=== PATIENT | male | born 1985 | race Caucasian/White ===

== ENCOUNTER 2019-01-21 13:14 | Emergency (ER) | payer MEDICAID, SELFPAY ==
--- NOTE | 2019-01-21 13:19 | NUR.NOTE ---
Nursing Note: pt states he has a history of acid reflux last night PT awoke with abdominal pain 01/18 which he states is typical for his acid reflux however PT also vomited last night which is atypical for him. pt currently has no abdominal pain. pt is here because the vomit concerns him as it had some red in it maybe blood but i did eat ketchup pt also states i need a damn work note because i missed work form this
[2019-01-21 13:22] VITALS: BP 152/89; PULSE 87; RESP 14; TEMP 36.7; O2SAT 96
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
== END 2019-01-21 14:15 | disposition home or self-care (01) ==
PROVIDERS: Emergency Provider Nurse Practitioner Family
DX: K21.9 Gastro-esophageal reflux disease without esophagitis (principal); R11.2 Nausea with vomiting, unspecified; I10 Essential (primary) hypertension
CPT/HCPCS: 99283

== ENCOUNTER 2020-05-03 13:59 | Outpatient (CLI) | payer MEDICAID, SELFPAY ==
--- NOTE | 2020-05-03 13:30 | DI.RAD_ITS ---
EXAM: XR ELBOW RT COMPLETE CLINICAL HISTORY: right elbow pain. TECHNIQUE: 2D digital imaging was performed. COMPARISON: CR RIGHT ELBOW COMPLETE from 10/06/2016 FINDINGS: The previously noted suture anchor is no longer seen. Postsurgical defect is again noted in the prox imal radius, near the tubercle. There is been interval increase in size of previously noted adjacent heterotopic bone formation. There is spurring at the olecranon. The joint spaces are well maintain ed. No joint effusion or joint space calcifications identified. IMPRESSION: Postsurgical changes. Heterotopic bone formation adjacent to the radial tubercle. DATA REPOSITORY: RADIATION DOSE DELIVERED:
== END 2020-05-03 14:19 ==
PROVIDERS: Visit Provider Physician Assistant
DX: M25.521 Pain in right elbow (principal); M89.8X3 Other specified disorders of bone, forearm
CPT/HCPCS: 73080

== ENCOUNTER 2021-02-02 12:07 | Emergency (ER) | payer MEDICAID, SELFPAY ==
[2021-02-02 12:13] VITALS: BP 131/109; PULSE 83; RESP 16; TEMP 36.8; O2SAT 98
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
== END 2021-02-02 12:45 | disposition home or self-care (01) ==
PROVIDERS: Emergency Provider Emergency Medicine
DX: H60.331 Swimmer's ear, right ear (principal); L73.9 Follicular disorder, unspecified
CPT/HCPCS: 99283

== ENCOUNTER 2021-11-05 10:11 | Emergency (ER) | payer MEDICAID, SELFPAY ==
[2021-11-05 10:19] VITALS: BP 135/65; PULSE 83; RESP 16; TEMP 36.8; O2SAT 98
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
[2021-11-05] MEDS: Lidocaine 2% Viscous 15 ML CUP PO (11:12)
[2021-11-05] MEDS: Mylanta Suspension 30 ML CUP PO (11:12)
[2021-11-05] MEDS: Ondansetron O.D.T. 4 MG TABEF SL (11:13)
[2021-11-05] MEDS: Pantoprazole 40 MG TABCR PO (11:13)
--- NOTE | 2021-11-05 11:33 | NUR.NOTE ---
Nursing Note: Referral given to Care Management to [facility] [place] [facility] for gastritis within 1 week. Erum Alejandro
[2021-11-05 11:42] VITALS: BP 128/81; PULSE 72; RESP 16; TEMP 36.8; O2SAT 96
--- NOTE | 2021-11-08 10:43 | CMACTNOTE_ITS ---
- If Service Date Differs Date of service: 11/08/21 Time of Service: 10:43 Care Management Activity Note Yaron is seen in the ED for gastritis. At the request of ED provider, JOHN coordinates a referral to [facility] [place] [place] [facility] to assist Yaron in obtaining an appointment for further evaluation and treatment. He has Medicaid for insurance.
== END 2021-11-05 11:41 | disposition home or self-care (01) ==
PROVIDERS: Emergency Provider Emergency Medicine
DX: K29.00 Acute gastritis without bleeding (principal)
CPT/HCPCS: 99283

== ENCOUNTER 2022-02-07 20:37 | Emergency (ER) | payer MEDICAID, SELFPAY ==
[2022-02-07 20:40] VITALS: BP 158/88; PULSE 87; RESP 18; TEMP 36.7; O2SAT 97
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
== END 2022-02-07 22:03 | disposition home or self-care (01) ==
PROVIDERS: Emergency Provider Emergency Medicine
DX: E86.0 Dehydration (principal); Z86.711 Personal history of pulmonary embolism; F17.210 Nicotine dependence, cigarettes, uncomplicated; F17.290 Nicotine dependence, other tobacco product, uncomplicated
CPT/HCPCS: 99281; 99284

== ENCOUNTER 2022-03-14 12:01 | Outpatient (CLI) | payer MEDICAID, SELFPAY ==
--- NOTE | 2022-03-14 12:00 | RT.EKG_ITS ---
APPROVED REPORT Exam: Resting ECG Reason for Exam: Fatigue Patient Location: O HR:52 bpm ECG Measurements Heart Rate 52 AXIS ME 172 P 79 QRSd 101 QRS 59 QT 437 T 59 QTc 407 Conclusion Sinus rhythm...normal P axis, V-rate 50- 99 Probable left ventricular hypertrophy...multiple LVH criteria
== END 2022-03-14 12:02 | disposition home or self-care (01) ==
LOC: DI.CM 12:02
PROVIDERS: Visit Provider Physician Assistant
DX: R07.89 Other chest pain (principal); R53.83 Other fatigue
CPT/HCPCS: 93010

== ENCOUNTER 2022-04-26 10:08 | Outpatient (CLI) | payer MEDICAID, SELFPAY ==
[2022-04-26 12:26] LABS: Abs Immature Grans 0.02 10^3/uL (0.0-0.06); Absolute Basophil Count 0.06 10^3/uL (0.0-0.2); Absolute Eosinophil Count 0.07 10^3/uL (0.0-0.7); Absolute Lymphocyte Count 1.64 10^3/uL (1.2-3.4); Absolute Monocyte Count 0.55 10^3/uL (0.1-0.8); Absolute Neutrophil Count 4.13 10^3/uL (1.2-6.7); Basophils % 0.9; Eosinophils % 1.1; HCT 44.4 % (40.0-50.0); HGB 15.6 g/dL (13.5-17.5); Immature Grans % 0.3; Lymphocytes % 25.3; MCH 32.9 pg (27.0-33.0); MCHC 35.1 % (32.0-36.0); MCV 94 fL (80-95); MPV 10.5 fL (8.0-11.0); Monocytes % 8.5; Neutrophils % 63.9; Platelet Count 271 10^3/uL (130-400); RBC 4.74 10^6/uL (4.36-5.78); RDW 11.9 % (11.8-14.1); RDW-SD 41.4 fL; WBC 6.47 10^3/uL (4.4-10.8)
[2022-04-26 12:44] LABS: ALT 21 U/L (16-63); AST 21 U/L (15-37); Alkaline Phosphatase 83 U/L (46-116); BUN 8 mg/dL (7-18); Bilirubin, Total 0.4 mg/dL (0.2-1.0); Calcium 9.3 mg/dL (8.5-10.1); Chloride 103 mmol/L (98-107); Estimated GFR 100.03 (mL/min/1.73m2); Glucose 90 mg/dL (74-106); Lipase 58 U/L (73-393); Potassium 4.2 mmol/L (3.5-5.1); Sodium 141 mmol/L (136-145); Total Protein 7.8 g/dL (6.4-8.2)
== END 2022-04-26 10:09 | disposition home or self-care (01) ==
LOC: LOS 10:08
PROVIDERS: PCP Nurse Practitioner Family; Referring Provider Nurse Practitioner Family; Visit Provider Nurse Practitioner Family
DX: R10.11 Right upper quadrant pain (principal)
CPT/HCPCS: 36415; 80053; 83690; 85025

== ENCOUNTER → 2022-05-05 00:48 | Outpatient (CLI) | payer MEDICAID, SELFPAY ==
--- NOTE | 2022-05-05 06:30 | DI.US_ITS ---
Exam(s) US ABDOMEN LIMITED EXAM: US ABDOMEN LIMITED CLINICAL HISTORY: evaluate pathology RUQ PAIN R10.11 TECHNIQUE: Ultrasound examination of the right upper quadrant was performed according to the usual p rotocol. COMPARISON: No exams were available for comparison FINDINGS: The liver is normal in size and shape. Hepatic parenchyma shows normal echotexture. No focal lesion identified. Portal venous flow is hepatopetal. No evidence of cholelithiasis. No biliary dilatation. Unremarkable appearance of the pancreas. Right kidney appears normal with no hydronephrosis or nephrolithiasis. Abdominal aorta and IVC are of normal diameter. IMPRESSION: Normal right upper quadrant ultrasound. RADIATION DOSE DELIVERED: Total DLP
== END ==
PROVIDERS: PCP Nurse Practitioner Family; Visit Provider Nurse Practitioner Family
DX: R10.11 Right upper quadrant pain (principal)
CPT/HCPCS: 76705

== ENCOUNTER 2022-09-22 10:10 | Emergency (ER) | payer MEDICAID, SELFPAY ==
[2022-09-22 10:15] VITALS: BP 114/69; PULSE 70; RESP 18; TEMP 36.8; O2SAT 99
[2022-09-22] MEDS: diazePAM 2 MG TAB PO (11:20)
[2022-09-22 11:57] VITALS: BP 116/78; PULSE 67; RESP 18; TEMP 36.3; O2SAT 97
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
[2022-09-22] MEDS: diazePAM 5 MG TAB 10 MG PO (12:33)
== END 2022-09-22 12:40 | disposition home or self-care (01) ==
PROVIDERS: Emergency Provider Nurse Practitioner Family; PCP Nurse Practitioner Family
DX: F14.23 Cocaine dependence with withdrawal (principal); F41.9 Anxiety disorder, unspecified
CPT/HCPCS: 99283

== ENCOUNTER 2023-03-13 11:18 | Emergency (ER) | payer MEDICAID, SELFPAY ==
[2023-03-13] VITALS (17 sets, daily range): BP systolic 129–166; BP diastolic 73–96; PULSE 57–77; RESP 16–20; TEMP 37; O2SAT 96–99
--- NOTE | 2023-03-13 11:45 | RT.EKG_ITS ---
APPROVED REPORT Exam: Resting ECG Reason for Exam: diagnostic Patient Location: E HR:63 bpm ECG Measurements Heart Rate 63 AXIS VA 168 P 45 QRSd 96 QRS 49 QT 408 T 27 QTc 418 Conclusion Sinus rhythm...normal P axis, V-rate 60- 99 ST elev, probable normal early repol pattern...ST elevation, age<55
[2023-03-13] MEDS: Doxycycline Hyclate 100 MG CAP PO (12:04)
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
[2023-03-13 12:21] LABS: Abs Immature Grans 0.01 10^3/uL (0.0-0.06); HCT 42.7 % (40.0-50.0); HGB 14.7 g/dL (13.5-17.5); MCH 32.2 pg (27.0-33.0); MCHC 34.4 % (32.0-36.0); MCV 93 fL (80-95); MPV 9.5 fL (8.0-11.0); Platelet Count 253 10^3/uL (130-400); RBC 4.57 10^6/uL (4.36-5.78); RDW 12.3 % (11.8-14.1); RDW-SD 42.2 fL; WBC 6.75 10^3/uL (4.4-10.8)
[2023-03-13 12:35] LABS: ALT 31 U/L (16-63); AST 29 U/L (15-37); Albumin 3.7 g/dL (3.4-5.0); Alkaline Phosphatase 84 U/L (46-116); Anion Gap 8.9 mmol/L (3-11); BUN 8 mg/dL (7-18); Bilirubin, Total 0.5 mg/dL (0.2-1.0); CO2 25.1 mmol/L (21.0-32.0); CREATININE 0.9 mg/dL (0.70-1.30); Calcium 9.3 mg/dL (8.5-10.1); Chloride 104 mmol/L (98-107); Estimated GFR 112.81 (mL/min/1.73m2); Glucose 95 mg/dL (74-106); Potassium 3.5 mmol/L (3.5-5.1); Sodium 138 mmol/L (136-145); Total Protein 7.6 g/dL (6.4-8.2)
[2023-03-13 12:50] LABS: Absolute Basophil Count 0.14 10^3/uL (0.0-0.2); Absolute Eosinophil Count 0.41 10^3/uL (0.0-0.7); Absolute Lymphocyte Count 1.82 10^3/uL (1.2-3.4); Absolute Monocyte Count 0.95 10^3/uL (0.1-0.8); Absolute Neutrophil Count 3.44 10^3/uL (1.2-6.7); Atypical Lymphocytes % 1; Diff Comment Manual Differential; RBC Morphology Normal
[2023-03-13] MEDS: Cephalexin 500 MG CAP PO (13:47)
[2023-03-14 10:22] LABS: Lyme Ab w Rflx to Lyme Confirm Negative (Negative)
[2023-03-15 21:45] LABS: Anaplasma phagocytophilum Negative (Negative); B. miyamotoi PCR Negative (Negative); Babesia divergens/MO-1 Negative (Negative); Babesia duncani Negative (Negative); Babesia microti Negative (Negative); Ehrlichia chaffeensis Negative (Negative); Ehrlichia ewingii/canis Negative (Negative); Ehrlichia muris eauclairensis Negative (Negative)
== END 2023-03-13 14:29 | disposition home or self-care (01) ==
PROVIDERS: Emergency Provider Student in an Organized Health Care Education/Training Program; PCP Nurse Practitioner Family
DX: L24.7 Irritant contact dermatitis due to plants, except food (principal); L03.114 Cellulitis of left upper limb; S40.861A Insect bite (nonvenomous) of right upper arm, initial encounter; S30.861A Insect bite (nonvenomous) of abdominal wall, initial encounter; W57.XXXA Bitten or stung by nonvenomous insect and other nonvenomous arthropods, initial encounter; Y92.89 Other specified places as the place of occurrence of the external cause; Y93.89 Activity, other specified; Y99.9 Unspecified external cause status
CPT/HCPCS: 80053; 87798; 93005; 99283; 85025; 86618; 93010

== ENCOUNTER 2023-06-13 10:08 | Emergency (ER) | payer MEDICAID, SELFPAY ==
[2023-06-13 10:13] VITALS: BP 134/92; PULSE 77; RESP 20; TEMP 37.2; O2SAT 96
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
[2023-06-13] MEDS: Buprenorphine/Naloxone 4 mg/1 mg FILM 1 EACH SL (11:10)
== END 2023-06-13 12:31 | disposition home or self-care (01) ==
PROVIDERS: Emergency Provider Student in an Organized Health Care Education/Training Program; PCP Nurse Practitioner Family
DX: F11.13 Opioid abuse with withdrawal (principal); F17.210 Nicotine dependence, cigarettes, uncomplicated
CPT/HCPCS: 99283; 99284

== ENCOUNTER 2023-06-20 10:45 | Emergency (ER) | payer MEDICAID, SELFPAY ==
[2023-06-20 10:48] VITALS: BP 155/92; PULSE 72; RESP 16; TEMP 37.7; O2SAT 98
[2023-06-20 10:56] VITALS: BP 155/92; PULSE 72; RESP 16; TEMP 37.7; O2SAT 98
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
== END 2023-06-20 11:00 | disposition home or self-care (01) ==
PROVIDERS: Emergency Provider Emergency Medicine; PCP Nurse Practitioner Family
DX: Z76.0 Encounter for issue of repeat prescription (principal); F41.9 Anxiety disorder, unspecified; F32.A Depression, unspecified; I10 Essential (primary) hypertension; F17.210 Nicotine dependence, cigarettes, uncomplicated
CPT/HCPCS: 99282

== ENCOUNTER 2024-07-11 00:11 | Outpatient (CLI) | payer MEDICAID, SELFPAY ==
--- NOTE | 2024-07-11 07:15 | DI.CT_ITS ---
Exam(s) CT ABDOMEN PELVIS W EXAM: CT ABDOMEN PELVIS W CLINICAL HISTORY: Center and left upper abd pain x 2 months. TECHNIQUE: Imaging Protocol: Axial computed tomography images with coronal and sagittal reformatted images were created and reviewed CONTRAST MATERIAL: Intravenous: Omnipaque-350 100cc Oral: Yes. Oral contrast was also administered for bowel opacification. COMPARISON: CT CHEST FOR PULMONARY EMBOLUS from 08/24/2015 FINDINGS: VISUALIZED LUNG BASES: There is bronchial wall thickening and mild infiltrate in the left lower lobe posterior and lateral basal segments. Visualized right lung base is clear. There are no pleural eff usions. ABDOMEN: There is no ascites. LIVER: There are no focal hepatic lesions evident. No dilated intrahepatic ducts. GALLBLADDER/BILIARY: No obvious gallbladder pathology. CBD is not dilated. PANCREAS: No evidence of pancreatic mass nor dilatation of the pancreatic duct. SPLEEN: Spleen is not enlarged. No obvious intrasplenic lesions. Splenic and portal veins are paten t. ADRENALS: There are no significant adrenal masses. KIDNEYS:Right kidney unremarkable. There is a benign cyst in the superior pole of the left kidney wh ich measures 1.5 x 1.5 cm and does not require further imaging workup. No solid renal masses. No ca lculi nor hydronephrosis.. ABDOMINAL AORTA: Abdominal aorta is not enlarged. LYMPH NODES:There is no retroperitoneal nor paraaortic adenopathy. ABDOMINAL WALL: There is a small fat only containing right inguinal hernia. GI: The oral contrast has reached distal small bowel loops by the time of image acquisition. It is n ot yet reached the colon but there is no evidence of small-bowel obstruction. No evidence of mild ro tation. No evidence of mesenteric swirl sign. No free air. No ascites. PELVIS: GI: Appendix appears unremarkable.There is abundant fecal material noted in the right-side of the col on as well as in the proximal half of the transverse colon. The colon distal to the splenic flexure exhibits some circumferential mural thickening. Although this may be related to lack of enteric cont rast within the lumen, cannot exclude a subtle colitis pattern. LYMPH NODES: There is no intrapelvic nor inguinal adenopathy. REPRODUCTIVE: Prostate not enlarged. Seminal vesicles unremarkable. URINARY BLADDER: Urinary bladder is collapsed and therefore difficult to evaluate. OSSEOUS: No fractures and no significant osseous lesions. Sacroiliac joints appear unremarkable. No lumbar disc space narrowing. No listhesis. No pars defects. IMPRESSION: 1. No evidence of appendicitis nor diverticulitis and no evidence of bowel obstruction. 2. Mildly prominent amount of fecal material in the proximal half of the colon. Distal half of the c olon exhibits slight circumferential wall thickening. This is evident distal to the splenic flexure. It may just be related to lack of oral contrast at this level but correlation with any clinical sig ns of colitis recommended. 3. There is bronchial wall thickening and mild tree-in-bud infiltrate in the left lower lobe noted. There are no pleural effusions. RADIATION DOSE DELIVERED: 522.64mGy.cm Total DLP DATA REPOSITORY: All CT scans at this facility are submitted to the National Radiology Data Registry (NRDR) Dose Index Registry (DIR) with the [employer] (ACR). RADIATION OPTIMIZATION: All CT scans at this facility use at least one of these dose optimization te chniques: automated exposure control; mA and/or kV adjustment per patient size (includes targeted exa ms where dose is matched to clinical indication); or iterative reconstruction.
[2024-07-11] MEDS: Barium Sulfate 2% W/V-Creamy Vanilla Smoothie 450 ML BTL PO ×2 (12:23→12:24)
[2024-07-11] MEDS: Normal Saline - Diluent 50 ML VIAL IJ (14:26)
[2024-07-11] MEDS: Omnipaque 350 MG/ML 100 ML BTL IJ (14:27)
== END 2024-07-11 00:31 ==
LOC: DI 00:11
PROVIDERS: PCP Nurse Practitioner Family; Visit Provider Nurse Practitioner Family
DX: R10.9 Unspecified abdominal pain (principal)
CPT/HCPCS: 74177; J3490

== ENCOUNTER 2025-05-27 09:45 | Emergency (ER) | payer MEDICAID, SELFPAY ==
[2025-05-27 09:56] VITALS: BP 164/107; PULSE 86; RESP 16; TEMP 36.4; O2SAT 98
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
[2025-05-27] MEDS: Doxycycline Hyclate 100 MG CAP PO (10:49)
[2025-05-27 10:53] VITALS: BP 149/80; PULSE 72; RESP 18; TEMP 36.8; O2SAT 98
== END 2025-05-27 10:59 | disposition home or self-care (01) ==
PROVIDERS: Emergency Provider Student in an Organized Health Care Education/Training Program; PCP Nurse Practitioner Family
DX: J18.9 Pneumonia, unspecified organism (principal)
CPT/HCPCS: 99283 ×2